=== PATIENT | female | born 1980 | race African-American/Black ===

== ENCOUNTER 2020-02-20 02:07 | Emergency (ER) | payer BC ==
[~2020-02-20] VITALS: Ht 177.8 cm; Wt 95.3 kg
[2020-02-20 02:08] VITALS: BP 118/80
[2020-02-20] MEDS ORDERED: COMBIVENT RESPIMAT 100-20MCG INHALER 4GM INH ONE (02:30)
[2020-02-20] MEDS ORDERED: PRED20TA PO (02:41)
[2020-02-20] MEDS ORDERED: methylPREDNISolone INJ 125 MG/2 ML VIAL (J2930) IM ONE (02:45)
--- NOTE | 2020-02-20 03:13 | REP ---
Clinical: Dyspnea . Comparison: None . Findings: The mediastinum and cardiac silhouette are stable and within normal limits for portable technique. The lung mukherjee are clear without acute consolidation, effusion, or pneumothorax. Skeletal structures are intact. Impression: No acute cardiopulmonary process appreciated. Electronically Signed by Braden Menendez MD 02/20/2020 03:04 A
== END 2020-02-20 03:19 | disposition home or self-care (01) ==
LOC: M ED 02:07
DX: J45.909 Unspecified asthma, uncomplicated (principal)
CPT/HCPCS: 71045; 94640; 99283; J2930